=== PATIENT | female | born 1990 | race Caucasian/White ===

== ENCOUNTER 2019-10-21 04:57 | Inpatient (IN) | payer OTHER, SELFPAY ==
[2019-10-21] VITALS (74 sets, daily range): BP systolic 100–149; BP diastolic 54–87; PULSE 73–101; RESP 12–20; TEMP 36.5–36.8; O2SAT 94–100; BMI 37.8
[2019-10-21 06:05] LABS: Basophils Percent Auto 0.2 % (0.2-1.2); Eosinophils Absolute Auto 0.1 K/mm3 (0-0.3); Eosinophils Percent Auto 0.9 % (0-4.4); Hematocrit 36.4 % (37.0-47.0); Hemoglobin 12.2 g/dL (12.0-15.0); Immature Granulocyte Absolute 0.04 K/mm3 (0.00-0.031); Immature Granulocyte Percent A 0.4 % (0-0.5); Lymphocytes Absolute Auto 1.22 K/mm3 (0.9-3.2); Lymphocytes Percent Auto 13.3 % (18.3-44.2); Mean Corpuscular HGB Conc 33.5 g/dl (32-36); Mean Corpuscular Volume 86.7 fl (80-100); Mean Platelet Volume 11.7 fl (7.4-10.4); Monocytes Absolute Auto 0.5 K/mm3 (0.1-0.6); Monocytes Percent Auto 5.1 % (2.6-8.5); Neutrophils Absolute Auto 7.3 K/mm3 (1.3-6.7); Neutrophils Percent Auto 80.1 % (45.5-73.1); Platelet Count Result 209 k/mm3 (150-375); Red Cell Distribution Width 13.7 % (11.5-14.5); White Blood Count 9.2 K/mm3 (4.5-10.0)
[2019-10-21 06:14] LABS: Alanine Aminotransferase 17 U/L (4-35); Albumin Level 3.8 g/dL (3.5-5.1); Alkaline Phosphatase 117 U/L (38-126); Aspartate Amino Transferase 21 U/L (14-36); Bilirubin,Total 0.3 mg/dL (0.2-1.3); Blood Urea Nitrogen 8 mg/dL (7-17); Calcium 9.7 mg/dL (8.4-10.2); Carbon Dioxide 19 mmol/L (22-30); Chloride 106 mmol/L (98-107); Estimated Glomerular Filt Rate > 60; Glucose 98 mg/dL (65-105); Potassium 4.1 mmol/L (3.4-5.0); Sodium 132 mmol/L (137-145); Uric Acid 5.5 mg/dL (2.5-7.5)
--- NOTE | 2019-10-21 06:42 | LDADM ---
This patient, Vandana Call, was admitted to Labor/Delivery/Recovery 102 on 10/21/19 at 04:57. Plans for labor, pain management and were discussed with patient. Patient/family oriented to hospital policies and general routines including ID bracelet, bed and alarms, visiting hours, pain management, procedures, bathroom and other care routines, personal items, smoking policy, room service/diet and guest tray routines, security routines, and visiting hours. Patient/Family are encouraged to report perceived risks to care and to ask questions if they do not understand what they are told or what they should do. See OBIX for further documentation.
[2019-10-21] MEDS: LACTATED RINGERS 1,000 ML 125 ML IV CONT (07:11)
[2019-10-21] MEDS: OXYTOCIN 30 UNITS/NS 500 ML 30 UNITS/500 ML BAG 6 UNITS IV CONT (07:11)
--- NOTE | 2019-10-21 07:13 | PM.IMHP ---
H&P: HPI History of Present Illness Chief complaint: induction Narrative: Vandana Call is a 29 year old female whose last menstrual period was 01/21/2019 EDC is 10/28/2019 presents at 39 weeks gestation for induction of labor. She has had rising blood pressures over the last 3 weeks. Her PIH labs were negative. She is also spilling protein. Review of Systems Review of Systems: All systems reviewed & are unremarkable except as noted in HPI and below PMFSH Family History Family History Other No pertinent family history Social History Social History Smoking packs per day: 0.5 Smoking cigarettes per day: 10.0 Years smoked: 10 Smoking pack-years: 5.00 Smoking status: Light tobacco smoker Tobacco type: cigarettes Substance use: never Gender identity (if verbalized by the patient): Female Spiritual care concerns: No Meds Home Medications and Allergies Home Medications Medication Instructions Recorded Confirmed Type PNV cmb#95-ferrous fumarate-FA 1 tablet PO DAILY 10/11/19 10/11/19 History [] ergocalciferol (vitamin D2) 50,000 unit PO WEEKLY 10/11/19 10/11/19 History [Vitamin D2] Allergies Allergy/AdvReac Type Severity Reaction Status Date / Time No Known Allergies Allergy Verified 10/11/19 13:26 Vital Signs Vital Signs - 24 hr 10/21/19 05:56 10/21/19 06:00 10/21/19 06:15 Pulse Rate 88 82 76 Blood Pressure 127/78 119/80 115/78 10/21/19 07:13 Pulse Rate 77 Blood Pressure 121/87 Exam Const: General: no acute distress Eyes: General: appearance normal, both eyes and all related structures Neck: Neck: supple and no JVD Thyroid: thyroid normal Resp: Effort & Inspection: normal respiratory effort Auscultation: clear to auscultation bilaterally Cardio: Rate: regular rate Rhythm: regular rhythm GI: Inspection: normal to inspection (Gravid soft uterus) : General: Yes other (Cervix is 2 to 3/70 5/-2. AROM clear. FHTs sure reassuring) Skin: General skin exam: no rashes or lesions noted Extrem: General: normal to inspection and no edema Psych: Mental Status: mental status grossly normal Affect: normal affect H&P: Results Labs Labs: Short CBC 10/21/19 Range/Units 05:52 WBC 9.2 (4.5-10.0) K/mm3 Hgb 12.2 (12.0-15.0) g/dL Hct 36.4 L (37.0-47.0) % Plt Count 209 (150-375) k/mm3 BMP 10/21/19 05:52 Sodium 132 L Potassium 4.1 Chloride 106 Carbon Dioxide 19 L BUN 8 Creatinine 0.40 L Glucose 98 Calcium 9.7 Liver Function 10/21/19 Range/Units 05:52 Total Bilirubin 0.3 (0.2-1.3) mg/dL AST 21 (14-36) U/L ALT 17 (4-35) U/L Alkaline Phosphatase 117 (38-126) U/L Albumin 3.8 (3.5-5.1) g/dL Assessment and Plan Additional Plan Impression 39 week with elevated blood pressures Plan: Medical lateral labor. Spontaneous vaginal delivery is expected. She has an epidural candidate. PIH labs were drawn and normal
[2019-10-21 07:43] LABS: Rapid Plasma Reagin Non-Reactive (NonReactive)
--- NOTE | 2019-10-21 08:00 | P.PNOB_ITS ---
OB - PN: Subj Subjective Date/time seen: 10/21/19 08:00 Interval history: episode of bradycardia after prolonged uc pit off/repositioned fhts ok now OB - PN: Obj Data Labs CBC & Chem 7: 10/21/19 05:52 10/21/19 05:52 Labs: Laboratory Results - last 24 hr 10/21/19 10/21/19 10/21/19 05:52 05:52 05:52 WBC 9.2 RBC 4.20 Hgb 12.2 Hct 36.4 L MCV 86.7 MCH 29.0 MCHC 33.5 RDW 13.7 Plt Count 209 MPV 11.7 H Immature Gran % (Auto) 0.4 Neut % (Auto) 80.1 H Lymph % (Auto) 13.3 L [place] % (Auto) 5.1 Eos % (Auto) 0.9 Baso % (Auto) 0.2 Lymph # (Auto) 1.22 [place] # (Auto) 0.5 Eos # (Auto) 0.1 Baso # (Auto) 0.0 Abs Immat Gran (auto) 0.04 H Absolute Neuts (auto) 7.3 H Absolute Nucleated RBC 0.0 Nucleated RBC % 0.0 Sodium 132 L Potassium 4.1 Chloride 106 Carbon Dioxide 19 L BUN 8 Creatinine 0.40 L Estim Creat Clear Calc Not Reportable Estimated GFR > 60 Glucose 98 Uric Acid 5.5 Calcium 9.7 Total Bilirubin 0.3 AST 21 ALT 17 Alkaline Phosphatase 117 Total Protein 7.0 Albumin 3.8 RPR Non-reactive Blood Type Antibody Screen 10/21/19 05:53 WBC RBC Hgb Hct MCV MCH MCHC RDW Plt Count MPV Immature Gran % (Auto) Neut % (Auto) Lymph % (Auto) [place] % (Auto) Eos % (Auto) Baso % (Auto) Lymph # (Auto) [place] # (Auto) Eos # (Auto) Baso # (Auto) Abs Immat Gran (auto) Absolute Neuts (auto) Absolute Nucleated RBC Nucleated RBC % Sodium Potassium Chloride Carbon Dioxide BUN Creatinine Estim Creat Clear Calc Estimated GFR Glucose Uric Acid Calcium Total Bilirubin AST ALT Alkaline Phosphatase Total Protein Albumin RPR Blood Type O Positive Antibody Screen Negative OB - PN A/P Time Spent With Patient Time: Total time spent is greater than 50% in coordination of care (as documented) at patient's floor/unit and/or counseling patient:
--- NOTE | 2019-10-21 08:44 | PM.OBPNVD ---
OB - PN: Subj Subjective Date/time seen: 10/21/19 08:44 Interval history: another few episodes of decels fhts returned offered section risks and benefits given OB - PN: Obj Data Labs CBC & Chem 7: 10/21/19 05:52 10/21/19 05:52 Labs: Laboratory Results - last 24 hr 10/21/19 10/21/19 10/21/19 05:52 05:52 05:52 WBC 9.2 RBC 4.20 Hgb 12.2 Hct 36.4 L MCV 86.7 MCH 29.0 MCHC 33.5 RDW 13.7 Plt Count 209 MPV 11.7 H Immature Gran % (Auto) 0.4 Neut % (Auto) 80.1 H Lymph % (Auto) 13.3 L [place] % (Auto) 5.1 Eos % (Auto) 0.9 Baso % (Auto) 0.2 Lymph # (Auto) 1.22 [place] # (Auto) 0.5 Eos # (Auto) 0.1 Baso # (Auto) 0.0 Abs Immat Gran (auto) 0.04 H Absolute Neuts (auto) 7.3 H Absolute Nucleated RBC 0.0 Nucleated RBC % 0.0 Sodium 132 L Potassium 4.1 Chloride 106 Carbon Dioxide 19 L BUN 8 Creatinine 0.40 L Estim Creat Clear Calc Not Reportable Estimated GFR > 60 Glucose 98 Uric Acid 5.5 Calcium 9.7 Total Bilirubin 0.3 AST 21 ALT 17 Alkaline Phosphatase 117 Total Protein 7.0 Albumin 3.8 RPR Non-reactive Blood Type Antibody Screen 10/21/19 05:53 WBC RBC Hgb Hct MCV MCH MCHC RDW Plt Count MPV Immature Gran % (Auto) Neut % (Auto) Lymph % (Auto) [place] % (Auto) Eos % (Auto) Baso % (Auto) Lymph # (Auto) [place] # (Auto) Eos # (Auto) Baso # (Auto) Abs Immat Gran (auto) Absolute Neuts (auto) Absolute Nucleated RBC Nucleated RBC % Sodium Potassium Chloride Carbon Dioxide BUN Creatinine Estim Creat Clear Calc Estimated GFR Glucose Uric Acid Calcium Total Bilirubin AST ALT Alkaline Phosphatase Total Protein Albumin RPR Blood Type O Positive Antibody Screen Negative OB - PN A/P Time Spent With Patient Time: Total time spent is greater than 50% in coordination of care (as documented) at patient's floor/unit and/or counseling patient:
--- NOTE | 2019-10-21 09:28 | P.OP_ITS ---
Procedure Note - Detailed Date of procedure: 10/21/19 Pre-op diagnosis: induction Surgeon: Kimo Buckley MD Postop diagnosis: Term /hypertension / intolerance of labor Procedure: Primary low transverse section EBL: 280cc Findings male Apgars 9 and 9 at 1 and 5 minutes respectively Complications: None anesthesia: General endotracheal Description of procedure: The patient was prepped and draped in the normal sterile fashion placed in the supine position under excellent general trach anesthesia rapid a transverse incision was made progressive layers to fascia. Fascia was upward outward fashion bilaterally. Underlying muscles were sharply dissected. Parietal peritoneum of [place] clamps entered by sharp dissection. This was carried superiorly then inferiorly the dome of the bladder. Bladder blade was placed bladder flap was formed. Bladder blade returned a low transverse incision made the head delivered in the JOSH position. Anterior posterior shoulder delivered spontaneously. Cord clamped x2 and cut and passed off the table given Apgars of 9 [id number]. Cord blood was drawn. Placenta delivered intact manually delivered uterus delivered from the abdomen. After assuring no membranes or debris made in the uterus uterus was closed with avtar nuous running locking 0 Vicryl from lateral edge to lateral edge. This was followed by a 2nd imbricating running locking 0 Vicryl from lateral edge to lateral edge. Hemostasis was assured ovaries and tubes appeared within normal limits. The uterus returned to the abdomen. Hysterotomy incision inspected 1 last time noted be hemostatic. Laps removed and accounted for. The fascia was closed with continuous running 0 Vicryl from lateral edge to midline bilaterally. Irrigation subcutaneous layer. The skin closed with 4 Monocryl and glue. All sponge, needle, instrument counts were correct. There were no immediate complications. Mom and baby doing fine at the time of dictation
--- NOTE | 2019-10-21 09:41 | WPDANESEPPF ---
Anes - Initial Pre Proc Eval Procedure: Operation Date: 10/21/19 08:50 Proposed Procedures p Section - Kimo Buckley MD Date/Time: 10/21/19 09:41 Surgeon: Kimo Buckley MD Pre Op Diagnosis: induction Patient Data Age: 29 Gender: F Height: 5 ft 4 in Weight: 100 kg Last Vital Signs Temp 36.8 C 10/21/19 07:22 Pulse 80 10/21/19 09:40 BP 135/71 10/21/19 09:40 Pulse Ox 100 10/21/19 09:39 Allergies Allergy/AdvReac Type Severity Reaction Status Date / Time No Known Allergies Allergy Verified 10/11/19 13:26 Home Medications Medication Instructions Recorded Confirmed Type PNV cmb#95-ferrous fumarate-FA 1 tablet PO DAILY 10/11/19 10/11/19 History [] ergocalciferol (vitamin D2) 50,000 unit PO WEEKLY 10/11/19 10/11/19 History [Vitamin D2] Laboratory Tests 10/21/19 10/21/19 10/21/19 05:52 05:52 05:52 WBC 9.2 K/mm3 K/mm3 (4.5-10.0) RBC 4.20 M/mm3 M/mm3 (4.2-5.4) Hgb 12.2 g/dL g/dL (12.0-15.0) Hct 36.4 % L % (37.0-47.0) MCV 86.7 fl fl (80-100) MCH 29.0 pg pg (26-34) MCHC 33.5 g/dl g/dl (32-36) RDW 13.7 % % (11.5-14.5) Plt Count 209 k/mm3 k/mm3 (150-375) MPV 11.7 fl H fl (7.4-10.4) Immature Gran % (Auto) 0.4 % % (0-0.5) Neut % (Auto) 80.1 % H % (45.5-73.1) Lymph % (Auto) 13.3 % L % (18.3-44.2) [place] % (Auto) 5.1 % % (2.6-8.5) Eos % (Auto) 0.9 % % (0-4.4) Baso % (Auto) 0.2 % % (0.2-1.2) Lymph # (Auto) 1.22 K/mm3 K/mm3 (0.9-3.2) [place] # (Auto) 0.5 K/mm3 K/mm3 (0.1-0.6) Eos # (Auto) 0.1 K/mm3 K/mm3 (0-0.3) Baso # (Auto) 0.0 K/mm3 K/mm3 (0.0-0.1) Abs Immat Gran (auto) 0.04 K/mm3 H K/mm3 (0.00-0.031) Absolute Neuts (auto) 7.3 K/mm3 H K/mm3 (1.3-6.7) Absolute Nucleated RBC 0.0 K/mm3 K/mm3 (0.0-0.012) Nucleated RBC % 0.0 % % (0.0-0.2) Sodium 132 mmol/L L mmol/L (137-145) Potassium 4.1 mmol/L mmol/L (3.4-5.0) Chloride 106 mmol/L mmol/L (98-107) Carbon Dioxide 19 mmol/L L mmol/L (22-30) BUN 8 mg/dL mg/dL (7-17) Creatinine 0.40 mg/dL L mg/dL (0.7-1.0) Estim Creat Clear Calc Not Reportable Estimated GFR > 60 (59 - ) Glucose 98 mg/dL mg/dL (65-105) Uric Acid 5.5 mg/dL mg/dL (2.5-7.5) Calcium 9.7 mg/dL mg/dL (8.4-10.2) Total Bilirubin 0.3 mg/dL mg/dL (0.2-1.3) AST 21 U/L U/L (14-36) ALT 17 U/L U/L (4-35) Alkaline Phosphatase 117 U/L U/L (38-126) Total Protein 7.0 g/dL g/dL (6.3-8.2) Albumin 3.8 g/dL g/dL (3.5-5.1) RPR Non-reactive (NonReactive) Blood Type Antibody Screen 10/21/19 05:53 WBC RBC Hgb Hct MCV MCH MCHC RDW Plt Count MPV Immature Gran % (Auto) Neut % (Auto) Lymph % (Auto) [place] % (Auto) Eos % (Auto) Baso % (Auto) Lymph # (Auto) [place] # (Auto) Eos # (Auto) Baso # (Auto) Abs Immat Gran (auto) Absolute Neuts (auto) Absolute Nucleated RBC Nucleated RBC % Sodium Potassium Chloride Carbon Dioxide BUN Creatinine Estim Creat Clear Calc Estimated GFR Glucose Uric Acid Calcium Total Bilirubin AST ALT Alkaline Phosphatase Total Protein Albumin RPR Blood Type O Positive Antibody Screen Negative Patient hx anesthesia problems: none Family hx anesthesia problems: none [facility] Past Medical History Medical History (Reviewed 10/21/19 @ 09:41 by Mikal Contreras,
[2019-10-21] MEDS: OXYTOCIN 30 UNITS/NS 500 ML 30 UNITS/500 ML BAG 125 UNITS IV CONT (11:22)
--- NOTE | 2019-10-21 14:00 | PC.NURSE ---
Consult with pt., Reviewed infant feeding cues, frequencies, duration of feedings, feeding elimination flow sheet, and signs of adequate intake. Demonstrated stimulation techniques to wake infant for feeding. Assisted with infant to breast. Reviewed positioning/alignment in cross cradle, holding breast in U hold and guided asymmetrical latch on. Discussed rational for each. Infant was able to latch correctly. nursed eagerly, with steady draws and frequent swallowing noted. Reviewed signs of a correct latch, effective nursing and suck swallow ratio. was able to maintain latch without discomfort to mother. Nipple care reviewed. Suggested to stimulate during feeding to keep infant awake and nursing effectively for increased intake and maintaining deep latch. Demonstrated how to adjust latch more deeply while feeding. Instructed mother to call out for RN assistance if she is unable to latch infant for feeding or she has discomfort with nursing. Instructed feeding should be initiated three hours from start of last feeding or if feeding cues are noted before. Mother voiced understanding of information shared.
--- NOTE | 2019-10-21 15:19 | PC.NURSE ---
Addendum entered by Juliana Horton RN 10/21/19 15:20: Pt. transferred at 1247. Original Note: Patient transferred to post room #290 via stretcher. Support person present. Oriented to unit, room, information board, rooming in, admission packet and security measures. Patient verbalizes understanding.
[2019-10-21] MEDS: IBUPROFEN 600 MG TABLET PO ×2 (16:39→23:47)
[2019-10-21] MEDS: KCL 20 MEQ/D5/0.45% SOD CHL 1,000 ML 125 ML IV CONT (16:40)
[2019-10-22] VITALS: BP 107/56; PULSE 81; RESP 16; TEMP 36.8
[2019-10-22 04:40] VITALS: BP 108/64; PULSE 76; RESP 16; TEMP 36.7
[2019-10-22 05:10] LABS: Basophils Percent Auto 0.2 % (0.2-1.2); Eosinophils Absolute Auto 0.1 K/mm3 (0-0.3); Eosinophils Percent Auto 0.9 % (0-4.4); Hemoglobin 9.7 g/dL (12.0-15.0); Immature Granulocyte Absolute 0.04 K/mm3 (0.00-0.031); Immature Granulocyte Percent A 0.5 % (0-0.5); Lymphocytes Absolute Auto 1.26 K/mm3 (0.9-3.2); Lymphocytes Percent Auto 15.5 % (18.3-44.2); Mean Corpuscular HGB Conc 33.4 g/dl (32-36); Mean Corpuscular Hemoglobin 29.2 pg (26-34); Mean Corpuscular Volume 87.3 fl (80-100); Mean Platelet Volume 11.4 fl (7.4-10.4); Monocytes Absolute Auto 0.4 K/mm3 (0.1-0.6); Monocytes Percent Auto 5.4 % (2.6-8.5); Neutrophils Absolute Auto 6.3 K/mm3 (1.3-6.7); Neutrophils Percent Auto 77.5 % (45.5-73.1); Platelet Count Result 163 k/mm3 (150-375); Red Blood Count 3.32 M/mm3 (4.2-5.4); Red Cell Distribution Width 13.9 % (11.5-14.5); White Blood Count 8.2 K/mm3 (4.5-10.0)
--- NOTE | 2019-10-22 06:52 | PM.OBPNVD ---
OB - PN: Subj Subjective Date/time seen: 10/22/19 06:52 Patient comments: no complaints and pain well controlled baby status: doing well and nursing well OB - PN: Obj Data Labs CBC & Chem 7: 10/22/19 04:39 10/21/19 05:52 Labs: Laboratory Results - last 24 hr 10/21/19 10/21/19 10/22/19 05:52 05:53 04:39 WBC 8.2 RBC 3.32 L Hgb 9.7 L Hct 29.0 L MCV 87.3 MCH 29.2 MCHC 33.4 RDW 13.9 Plt Count 163 MPV 11.4 H Immature Gran % (Auto) 0.5 Neut % (Auto) 77.5 H Lymph % (Auto) 15.5 L [place] % (Auto) 5.4 Eos % (Auto) 0.9 Baso % (Auto) 0.2 Lymph # (Auto) 1.26 [place] # (Auto) 0.4 Eos # (Auto) 0.1 Baso # (Auto) 0.0 Abs Immat Gran (auto) 0.04 H Absolute Neuts (auto) 6.3 Absolute Nucleated RBC 0.0 Nucleated RBC % 0.0 RPR Non-reactive Blood Type O Positive Antibody Screen Negative OB - PN A/P Plan day: 1 Plan: routine care Time Spent With Patient Time: Total time spent is greater than 50% in coordination of care (as documented) at patient's floor/unit and/or counseling patient: Time with patient: less than 15 minutes Review of Systems Review of Systems: All systems reviewed & are unremarkable except as noted in HPI and below Exam Const: General: no acute distress Eyes: General: appearance normal, both eyes and all related structures Neck: Neck: supple and no JVD Thyroid: thyroid normal Resp: Effort & Inspection: normal respiratory effort Auscultation: clear to auscultation bilaterally Cardio: Rate: regular rate Rhythm: regular rhythm GI: Inspection: normal to inspection and incision (cdi) Percussion: Yes normal to percussion Auscultation: normal bowel sounds : General: Yes bladder normal to palpation External Female Exam: normal external appearance Speculum Exam - Vagina: normal vaginal discharge and No vaginal bleeding Speculum Exam - Cervix: nontender Bimanual exam- vagina & uterus: bladder normal to palpation and No Cervical tenderness present OB/external & speculum: No vaginal bleeding Skin: General skin exam: no rashes or lesions noted Extrem: General: normal to inspection and no edema Psych: Mental Status: mental status grossly normal Affect: normal affect
[2019-10-22 08:02] VITALS: BP 133/84; PULSE 76; RESP 20; TEMP 36.7; O2SAT 97
[2019-10-22] MEDS: POLYSACCHARIDE IRON COMPLEX 150 MG CAPSULE PO ×2 (09:38→17:14)
[2019-10-22] MEDS: DOCUSATE SODIUM 100 MG CAPSULE PO ×2 (09:39→17:14)
[2019-10-22] MEDS: IBUPROFEN 600 MG TABLET PO ×2 (09:40→17:11)
[2019-10-22] MEDS: MULTIVIT/MIN/PREN/FOL AC/IRON TABLET 1 TAB PO (09:40)
[2019-10-22] MEDS: SIMETHICONE 80 MG TAB.CHEW PO ×2 (09:47→17:16)
--- NOTE | 2019-10-22 10:20 | PC.NURSE ---
Mother called out for assist with feeding. Mother states she began using the nipple shield during the night. Infant had difficulties latching and maintaining latch. Discussed nipple shield precautions and possible complications. Instructions given on application and cleaning of shield. Patient able to return demonstration on proper application of shield. Discussed the need to initiate pumping if infant continues to nurse with the shield. Patient verbalizes understanding. Reviewed positioning/alignment in football, holding breast in C hold and guided asymmetrical latch on. Discussed rational for each. With shield in place, Infant was able to latch correctly. nursed eagerly, with steady draws and occasional swallowing noted. Reviewed signs of a correct latch, effective nursing and suck swallow ratio. was able to maintain latch without discomfort to mother. Nipple care reviewed. Reviewed infant feeding cues, frequencies, duration of feedings, feeding elimination flow sheet, and signs of adequate intake. Mother states she is concerned infant is not getting enough with . Reviewed adequate signs of intake and is WNL at this time. Advised she could supplement small amount of formula 15-20mls after and discontinue once her milk is in and she is comfortable, she could discontinue supplement. Mother states she will initiate supplementation.
--- NOTE | 2019-10-22 13:50 | PC.NURSE ---
Breast pump provided due to nipple shield use. Instructions given on breast pump care and usage, pumping schedule, nipple care, and collection and storage of breast milk. Encouraged [id number], breast massage and manual expression to stimulate supply. . Assessed patient for correct flange size, placement and draw. Patient verbalizes and demonstrates understanding of instructions.
--- NOTE | 2019-10-22 15:30 | PC.NURSE ---
Pt introductions made and plan of care discussed per post op c section, pain management, breast/bottle feeding/pumping, daily care activities. PT verbalized understanding of such care.
[2019-10-22 20:25] VITALS: BP 114/68; PULSE 84; RESP 16; TEMP 36.6
[2019-10-23 07:45] VITALS: BP 121/71; PULSE 74; RESP 16; TEMP 36.3; O2SAT 99
[2019-10-23] MEDS: MULTIVIT/MIN/PREN/FOL AC/IRON TABLET 1 TAB PO (09:58)
[2019-10-23] MEDS: POLYSACCHARIDE IRON COMPLEX 150 MG CAPSULE PO (09:58)
[2019-10-23] MEDS: DOCUSATE SODIUM 100 MG CAPSULE PO (09:58)
[2019-10-23] MEDS: IBUPROFEN 600 MG TABLET PO (09:59)
[2019-10-23] MEDS: SIMETHICONE 80 MG TAB.CHEW PO (10:00)
--- NOTE | 2019-10-23 11:22 | PM.OBPNVD ---
OB - PN: Subj Subjective Date/time seen: 10/23/19 11:22 Narrative: Pain OK. Tolerating diet. Would like to go home. OB - PN: Obj Data Labs CBC & Chem 7: 10/22/19 04:39 10/21/19 05:52 OB - PN A/P Plan Comments: A: POD#2, doing well. P: Home to f/u 4 weeks. Exam Psych: Other: AVSS ABD soft, nontender, fundus firm. Incision c/d/i. EXT nontender
--- NOTE | 2019-10-23 11:22 | PM.OBDSVD ---
DS: Diagnosis Discharge Diagnosis (1) delivery delivered: Code(s): O82 - Encounter for delivery without indication Status: Acute OB - DS: Summary OB Procedures : None OB Procedures Intrapartum: OB Procedures: : None Peripartum Data Procedures: Procedures Operation Date: 10/21/19 08:50 Actual Procedures Side Surgeon p Section Kimo Buckley MD Time Spent with Patient Time attestation: Total time spent providing and/or coordinating discharge services: Discharge Plan Discharge Attending physician on discharge: Kimo Buckley Discharging Clinician: Lamont Archer Patient Disposition: Home, Self-Care Activity: may shower, may drive after 2 weeks and pelvic rest Diet: regular Wound Care Instructions: incision open to air Discharge Instructions: Call or return if temperature above 100.4? F, increased abdominal pain, increased vaginal bleeding or any new problems. Stand Alone Forms: General Discharge Information Follow-up/Referrals: Kimo Buckley MD [Physician] - (4 weeks) Discharge Medications: New ibuprofen 600 mg tablet 600 mg PO Q6H PRN (Reason: cramps) Qty: 30 RF: 0 hydrocodone-acetaminophen [[place]] 5-325 mg tablet 1 - 2 tablet PO Q6H PRN (Reason: pain) Qty: 30 RF: 0 ferrous sulfate 325 mg (65 mg iron) tablet,delayed release (DR/EC) 325 mg PO DAILY Qty: 30 RF: 0 No Action PNV cmb#95-ferrous fumarate-FA [] 28 mg iron- 800 mcg Tablet 1 tablet PO DAILY RF: 0 ergocalciferol (vitamin D2) [Vitamin D2] 1,250 mcg (50,000 unit) Capsule 50,000 unit PO WEEKLY RF: 0 Date of admission: 10/21/19 04:57 Primary Care Provider: UNKNOWN,DOCTOR Admitting Provider: Kimo Buckley Attending physician on admission: Kimo Buckley
--- NOTE | 2019-10-23 13:15 | PC.NURSE ---
1000-Patient viewed the discharge video Mother & Baby Care, The First Two Weeks . Patient was given the opportunity and encouraged to ask questions. Patient verbalized understanding of information shared and has been given the mother/baby guide for home reference.
[2019-10-25 09:02] VITALS: BP 131/84; PULSE 80; RESP 20; TEMP 37; O2SAT 99
== END 2019-10-23 13:56 | disposition home or self-care (01) | DRG 788 ==
LOC: ANHLDR 05:32 → ANHOB2 13:36 → ANHLDR 10-26 10:32 → ANHOB2 10-26 10:32
PROVIDERS: Admitting Provider Obstetrics & Gynecology; Visit Provider Obstetrics & Gynecology
PROC: 10D00Z1 Extraction of Products of Conception, Low, Open Approach (ICD-10-PCS; CPT 59514; principal; 2019-10-21 08:50)
DX: O24.429 Gestational diabetes mellitus in childbirth, unspecified control (principal); O99.214 Obesity complicating childbirth; E66.01 Morbid (severe) obesity due to excess calories; O76 Abnormality in fetal heart rate and rhythm complicating labor and delivery; Z23 Encounter for immunization; F17.210 Nicotine dependence, cigarettes, uncomplicated; Z3A.39 39 weeks gestation of pregnancy; Z37.0 Single live birth; O99.334 Smoking (tobacco) complicating childbirth
CPT/HCPCS: 36415; 80053; 84550; 85025; 86592; 86850; 86900; 86901; A9270; J2250; J2274; J2590; J3010; J3105; J3480; J7030; J7120

== ENCOUNTER → 2020-09-18 11:06 | Outpatient (CLI) | payer OTHER, SELFPAY ==
--- NOTE | ~2020-09-18 | US_ITS ---
EXAMINATION: US OB transvaginal DATE: 09/18/2020 11:35 INDICATION: Uncertain dates. TECHNIQUE: Real-time transvaginal pelvic ultrasound was performed. COMPARISON: None. FINDINGS: The uterus measures 10.2 x 5.6 x 6.0 cm. There is an intrauterine gestational sac. A yolk sac is iden tified. The crown rump length measures 9 mm, which correlates with an estimated gestational ag e of 6 weeks and 6 day(s) (+/-) 4 day(s). heart motion is identified measuring 149 beats per mi nute (bpm) by M-mode Doppler. There is a small subchorionic hematoma measuring 1.0 x 0.3 x 0.7 cm. Th e right ovary measures 2.0 x 2.8 x 2.1 cm. The left ovary measures 1.7 x 1.8 x 2.2 cm. There is no fr ee fluid in the pelvis. IMPRESSION: 1. Single living intrauterine gestation with estimated date of delivery of 05/08/2021. 2. Small subchorionic hematoma. Reviewed, dictated and finalized at location A. OR PETROLEUM OPERATOR IMPRESSION: 1. Single living intrauterine gestation with estimated date of delivery of 06/2021. 2. Small subchorionic hematoma.
== END ==
PROVIDERS: Visit Provider Obstetrics & Gynecology
DX: O46.90 Antepartum hemorrhage, unspecified, unspecified trimester (principal); Z3A.00 Weeks of gestation of pregnancy not specified
CPT/HCPCS: 76817

== ENCOUNTER 2021-04-21 13:45 | Observation (INO) | payer OTHER, SELFPAY ==
[2021-04-21 14:10] VITALS: BP 135/74; PULSE 76
[2021-04-21 14:31] VITALS: BP 129/80; PULSE 74
[2021-04-21] MEDS: LACTATED RINGERS 1,000 ML 999 ML IV CONT (14:50)
[2021-04-21] MEDS: ONDANSETRON INJ 4 MG/2 ML VIAL IV PUSH (14:52)
[2021-04-21] MEDS: FAMOTIDINE 20 MG/2 ML VIAL IV PUSH (14:52)
[2021-04-21 15:14] LABS: Basophils Percent Auto 0.2 % (0.2-1.2); Eosinophils Percent Auto 0.3 % (0-4.4); Hematocrit 34.7 % (37.0-47.0); Hemoglobin 11.7 g/dL (12.0-15.0); Immature Granulocyte Absolute 0.04 K/mm3 (0.00-0.031); Immature Granulocyte Percent A 0.4 % (0-0.5); Lymphocytes Absolute Auto 0.64 K/mm3 (0.9-3.2); Lymphocytes Percent Auto 6.5 % (18.3-44.2); Mean Corpuscular HGB Conc 33.7 g/dl (32-36); Mean Corpuscular Hemoglobin 30.2 pg (26-34); Mean Corpuscular Volume 89.7 fl (80-100); Mean Platelet Volume 11.2 fl (7.4-10.4); Monocytes Absolute Auto 0.4 K/mm3 (0.1-0.6); Monocytes Percent Auto 3.7 % (2.6-8.5); Neutrophils Absolute Auto 8.7 K/mm3 (1.3-6.7); Neutrophils Percent Auto 88.9 % (45.5-73.1); Platelet Count Result 178 k/mm3 (150-375); Red Blood Count 3.87 M/mm3 (4.2-5.4); Red Cell Distribution Width 13.9 % (11.5-14.5); White Blood Count 9.8 K/mm3 (4.5-10.0)
[2021-04-21 15:24] LABS: Alanine Aminotransferase 20 U/L (4-35); Alkaline Phosphatase 121 U/L (38-126); Anion Gap 10 mmol/L (8-16); Aspartate Amino Transferase 23 U/L (14-36); Bilirubin,Total 0.5 mg/dL (0.2-1.3); Blood Urea Nitrogen 6 mg/dL (7-17); Carbon Dioxide 19 mmol/L (22-30); Chloride 108 mmol/L (98-107); Estimated Glomerular Filt Rate > 60; Glucose 114 mg/dL (65-110); Potassium 4.1 mmol/L (3.4-5.0); Sodium 137 mmol/L (137-145)
--- NOTE | 2021-04-22 07:38 | PM.OBTRLD ---
OB - Triage/Final Diagnosis Visit Information Date of evaluation: 04/21/21 Reason for evaluation: threatened labor Comments/Additional reasons for admission: I have assessed the risk for this patient, Vandana Call, and determined that she would benefit from observation care. Evaluation Laboratory results: Laboratory Tests 04/21/21 04/21/21 14:58 14:58 WBC 9.8 RBC 3.87 L Hgb 11.7 L Hct 34.7 L MCV 89.7 MCH 30.2 MCHC 33.7 RDW 13.9 Plt Count 178 MPV 11.2 H Immature Gran % (Auto) 0.4 Neut % (Auto) 88.9 H Lymph % (Auto) 6.5 L [place] % (Auto) 3.7 Eos % (Auto) 0.3 Baso % (Auto) 0.2 Lymph # (Auto) 0.64 L [place] # (Auto) 0.4 Eos # (Auto) 0.0 Baso # (Auto) 0.0 Abs Immat Gran (auto) 0.04 H Absolute Neuts (auto) 8.7 H Absolute Nucleated RBC 0.0 Nucleated RBC % 0.0 Sodium 137 Potassium 4.1 Chloride 108 H Carbon Dioxide 19 L Anion Gap 10 BUN 6 L Creatinine 0.40 L Estim Creat Clear Calc Not Reportable Estimated GFR > 60 Glucose 114 H Calcium 9.0 Total Bilirubin 0.5 AST 23 ALT 20 Alkaline Phosphatase 121 Total Protein 7.0 Albumin 4.0 Vital signs: Vital Signs - 24 hr 04/21/21 14:10 04/21/21 14:31 Pulse Rate 76 74 Blood Pressure 135/74 129/80 Comments: Pt symptoms improved with IVF hydration, zofran and pepcid
== END 2021-04-21 16:33 | disposition home or self-care (01) ==
PROVIDERS: Admitting Provider Student in an Organized Health Care Education/Training Program; Visit Provider Student in an Organized Health Care Education/Training Program
DX: O47.1 False labor at or after 37 completed weeks of gestation (principal); Z3A.38 38 weeks gestation of pregnancy
CPT/HCPCS: 36415; 80053; 85025; 96374; 96375; G0378; G0379; J2405; J7120

== ENCOUNTER 2021-04-28 11:46 | Outpatient (CLI) | payer OTHER, SELFPAY ==
[2021-04-28 12:41] LABS: Hematocrit 32.9 % (37.0-47.0); Hemoglobin 11.1 g/dL (12.0-15.0); Mean Corpuscular HGB Conc 33.7 g/dl (32-36); Mean Corpuscular Hemoglobin 29.5 pg (26-34); Mean Corpuscular Volume 87.5 fl (80-100); Mean Platelet Volume 11.4 fl (7.4-10.4); Platelet Count Result 175 k/mm3 (150-375); Red Blood Count 3.76 M/mm3 (4.2-5.4); Red Cell Distribution Width 14.1 % (11.5-14.5); White Blood Count 6.9 K/mm3 (4.5-10.0)
[2021-04-30 10:41] LABS: Rapid Plasma Reagin Non-Reactive (NonReactive)
== END 2021-04-28 11:47 | disposition home or self-care (01) ==
PROVIDERS: Visit Provider Obstetrics & Gynecology
DX: Z34.93 Encounter for supervision of normal pregnancy, unspecified, third trimester (principal); Z3A.00 Weeks of gestation of pregnancy not specified
CPT/HCPCS: 36415; 85027; 86592; 86850; 86900; 86901

== ENCOUNTER 2021-04-30 05:30 | Inpatient (IN) | payer OTHER, SELFPAY ==
[2021-04-30] VITALS (56 sets, daily range): BP systolic 102–135; BP diastolic 12–107; PULSE 59–131; RESP 12–20; TEMP 36.1–37.3; O2SAT 98–100; BMI 37.6
[2021-04-30] MEDS: LACTATED RINGERS 1,000 ML 125 ML IV CONT ×2 (06:50→08:14)
--- NOTE | 2021-04-30 07:06 | LDADM ---
This patient, Vandana Call, was admitted to Labor/Delivery/Recovery 120 on 04/30/21 at 05:30. Plans for surbery/ and pain management were discussed with patient. Patient/family oriented to hospital policies and general routines including ID bracelet, bed and alarms, visiting hours, pain management, procedures, bathroom and other care routines, personal items, smoking policy, room service/diet and guest tray routines, security routines, and visiting hours. Patient/Family are encouraged to report perceived risks to care and to ask questions if they do not understand what they are told or what they should do. See OBIX for further documentation.
--- NOTE | 2021-04-30 07:45 | PM.IMHP ---
H&P: HPI History of Present Illness Date/Time: 04/30/21 07:45 31-year-old removed 2 para 1 whose last menstrual period was 07/23/2020, EDC is 05/05/2021, confirmed by 10 week ultrasound presents at term for repeat section. She has good dates and declined attempt at vaginal after . She is negative for group B strep Chief Complaint: term for repeat section Review of Systems Review of Systems: All systems reviewed & are unremarkable except as noted in HPI and below PMFSH Past Medical History Medical History Hypertension Family History Family History Mother Diabetes mellitus Father Hypertension Mother Hypertension Other No pertinent family history Social History Social History Smoking packs per day: 0.5 Smoking cigarettes per day: 10.0 Years smoked: 12 Smoking pack-years: 6.00 Smoking status: Current every day smoker Tobacco type: cigarettes Substance use: never Gender identity (if verbalized by the patient): Female Spiritual care concerns: No Meds Home Medications and Allergies Home Medications Medication Instructions Recorded Confirmed Type PNV cmb#95-ferrous fumarate-FA 1 tablet PO DAILY 10/11/19 04/30/21 History [] Allergies Allergy/AdvReac Type Severity Reaction Status Date / Time No Known Allergies Allergy Verified 10/11/19 13:26 Vital Signs Vital Signs - 24 hr 04/30/21 05:47 04/30/21 06:01 04/30/21 06:16 Temperature Pulse Rate 90 85 81 Blood Pressure 120/85 127/86 124/75 04/30/21 06:31 04/30/21 06:43 Temperature 98.0 F Pulse Rate 80 Blood Pressure 123/81 Exam Const: General: no acute distress Eyes: General: appearance normal, both eyes and all related structures Neck: Neck: supple and no JVD Thyroid: thyroid normal Resp: Effort & Inspection: normal respiratory effort Auscultation: clear to auscultation bilaterally Cardio: Rate: regular rate Rhythm: regular rhythm GI: Inspection: non-distended GI Palp: Yes Soft to palpation, No Tenderness to palpation present (GI) and No Guarding due to palpation present (GI) Auscultation: normal bowel sounds : External Female Exam: normal external appearance Speculum Exam - Vagina: normal appearance of the vagina Speculum Exam - Cervix: normal appearance of the cervix Bimanual exam- vagina & uterus: enlarged Skin: General skin exam: no rashes or lesions noted Extrem: General: normal to inspection and no edema Psych: Mental Status: mental status grossly normal Affect: normal affect Assessment and Plan Additional Plan impression: Term with previous section Plan: Repeat low-transverse section
--- NOTE | 2021-04-30 07:49 | P.PNAN_ITS ---
Anes - Initial Pre Proc Eval Procedure: Operation Date: 04/30/21 07:30 Proposed Procedures p Repeat Section - Kimo Buckley MD Date/Time: 04/30/21 07:49 Surgeon: Kimo Buckley MD Pre Op Diagnosis: Patient Data Age: 31 Gender: F Height: 1.63 m Weight: 99.5 kg Last Vital Signs Temp 36.7 C 04/30/21 06:43 Pulse 80 04/30/21 06:31 BP 123/81 04/30/21 06:31 Allergies Allergy/AdvReac Type Severity Reaction Status Date / Time No Known Allergies Allergy Verified 10/11/19 13:26 Home Medications Medication Instructions Recorded Confirmed Type PNV cmb#95-ferrous fumarate-FA 1 tablet PO DAILY 10/11/19 04/30/21 History [] hydrocodone-acetaminophen 1 tablet PO Q4H PRN #30 tablet 04/30/21 Rx Patient hx anesthesia problems: none Family hx anesthesia problems: none Results Review: All pre-operative results and documents have been reviewed as part of the pre-operative evaluation. [facility] Past Medical History Medical History Hypertension Family History Family History Mother Diabetes mellitus Father Hypertension Mother Hypertension Other No pertinent family history Social History Social History Smoking packs per day: 0.5 Smoking cigarettes per day: 10.0 Years smoked: 12 Smoking pack-years: 6.00 Smoking status: Current every day smoker Tobacco type: cigarettes Substance use: never Gender identity (if verbalized by the patient): Female Spiritual care concerns: No Anes - Eval Final PreProcedure Day of Procedure 04/30/21 07:49 Patient weight: obese Heart: regular rate and rhythm Lungs: clear to auscultation Airway: Mallampati scale class II Neurological: alert and oriented ASA classification: II Emergent: no Anesthetic plan: proceed Anesthesia type and monitoring: regional spinal and standard monitoring Results Review: All pre-operative results and documents have been reviewed as part of the pre-operative evaluation. Informed Consent: The patient's anesthetic plan and its attendant risks and benefits were discussed with the patient/family/POA. Questions were solicited and answers provided to the satisfaction of the patient/family/POA.
[2021-04-30] MEDS: ceFAZolin 2 GM/D5W 50 ML 2 GM/50 ML BAG IVPB (08:23)
--- NOTE | 2021-04-30 08:24 | WPDHPUPDATE1 ---
History and Physical Update Update Date/Time: 04/30/21 08:24 History and Physical has been reviewed, including an updated exam of the patient. There are NO changes in the patient's condition. Risks, benefits, and alternatives have been discussed and questions answered. Patient agrees to proceed with procedure.
[2021-04-30] MEDS: KETOROLAC 30 MG/ML VIAL (*BKC) IV PUSH (08:55)
--- NOTE | 2021-04-30 09:08 | W.PM.PROC2 ---
Procedure Note - Detailed Date of Procedure 04/30/21 Pre-op Diagnosis Post-op Diagnosis same Procedure Performed Repeat low-transverse section Surgeon Kimo Buckley MD Anesthesia spinal Indications This is a 31-year-old 2 para 1 at term with a previous section who declined Findings Male infant 6lb 14oz with Apgars of 9 and 9 at 1 and 5minutes respectively. Small amount of and interior adhesions. Normal-appearing ovaries and tubes. Description of Procedure The patient is prepped draped in normal sterile fashion placed in spine position. Under excellent spinal anesthetic the abdomen was entered in a Pfannenstiel fashion progressive layers to the fascia. Fascia was incised in upward outward fashion bladder underlying muscles sharply dissected and the parietal peritoneum elevated by Flori clamps. Visit carried superiorly and inferiorly dome of the bladder. Bladder blade was placed. Bladder flap was formed. The bladder blade returned. A low-transverse incision made the head delivered in the YARI position. Anterior posterior shoulder delivered spontaneously. Cord clamped x2 and cut and infant passed off the table with an excellent cry. Placenta delivered intact manually. Uterus delivered from the abdomen and wrapped in a moist towel. After assuring no membranes or debris remained in the uterus, the uterus was closed continuous running 0 Vicryl from lateral edge to lateral edge. This was followed by 2nd imbricating running locking 0 Vicryl from lateral edge to lateral edge. Hemostasis was assured in the ovaries and tubes checked. The uterus returned to the abdomen. The laps were removed and accounted for. The hysterotomy incision was noted be hemostatic. The fascia closed with continuous running 0 Vicryl from lateral edge to midline bilaterally. The skin closed with 4-0 Monocryl and glue. QBL was 285. All sponge, needle, instrument counts were correct. There were no immediate complications Estimated Blood Loss 285 Drains No Packing No Pathology none sent Complications No immediate complications Condition stable Disposition floor
[2021-04-30] MEDS: diphenhydrAMINE HCl INJ 50 MG/ML VIAL 25 MG IV PUSH (10:07)
--- NOTE | 2021-04-30 12:45 | PC.NURSE ---
Consulted with patient, reviewed infant feeding cues, frequencies, duration of feedings, feeding elimination flow sheet, and signs of adequate intake. Demonstrated stimulation techniques to wake infant for feeding. Assisted with infant to breast. Reviewed positioning/alignment, holding breast and asymmetrical latch on. Infant was able to latch correctly. Infant would latch for 4-5 bursts of sucking and then come off breast. Infant would repeatedly attempt to latch onto breast then suck a few times and come off. Reviewed signs of a correct latch, effective nursing and suck swallow ratio. was able to latch without discomfort to mother. Nipple care reviewed. Instructed mother to call out for RN assistance if she is unable to latch for feeding or she has discomfort with nursing. Instructed feeding should be initiated three hours from start of last feeding or if feeding cues are noted before. Mother voiced understanding of information shared. Nipple shield provided to mother due to infant becoming very frustrated and coming off and on the breast. Instructions given on application and cleaning of shield. Discussed nipple shield precautions and possible complications. Patient able to return demonstration on proper application of shield. Discussed the need to initiate pumping if continues to nurse with the shield. Patient verbalizes understanding.
--- NOTE | 2021-04-30 17:41 | OBPPTRN ---
1150-Patient transferred to post room #282 via stretcher. Support person present. Oriented to unit, room, information board, rooming in, admission packet and security measures. Patient verbalizes understanding.
[2021-04-30] MEDS: DEXTROSE 5%/0.45% SOD CHL 1,000 ML 125 ML IV CONT (20:44)
[2021-05-01] VITALS: BP 102/54; PULSE 72; RESP 18; TEMP 36.3; O2SAT 98
[2021-05-01] MEDS: IBUPROFEN 600 MG TABLET PO ×3 (03:52→23:53)
[2021-05-01 04:20] VITALS: BP 129/61; PULSE 79; RESP 18; TEMP 35.9; O2SAT 99
--- NOTE | 2021-05-01 04:32 | PM.OBPNVD ---
OB - PN: Subj Subjective Date/time seen: 05/01/21 04:32 Patient comments: no complaints and pain well controlled baby status: doing well and nursing well OB - PN A/P Plan day: 1 Plan: routine care Time Spent With Patient Time: Total time spent is greater than 50% in coordination of care (as documented) at patient's floor/unit and/or counseling patient: Time with patient: less than 15 minutes Review of Systems Review of Systems: All systems reviewed & are unremarkable except as noted in HPI and below Exam Const: General: no acute distress Eyes: General: appearance normal, both eyes and all related structures Neck: Neck: supple and no JVD Thyroid: thyroid normal Resp: Effort & Inspection: normal respiratory effort Auscultation: clear to auscultation bilaterally Cardio: Rate: regular rate Rhythm: regular rhythm GI: Inspection: non-distended GI Palp: Yes Soft to palpation, No Tenderness to palpation present (GI) and No Guarding due to palpation present (GI) Auscultation: normal bowel sounds : General: Yes bladder normal to palpation External Female Exam: normal external appearance Speculum Exam - Vagina: normal vaginal discharge and No vaginal bleeding Speculum Exam - Cervix: nontender Bimanual exam- vagina & uterus: bladder normal to palpation and No Cervical tenderness present OB/external & speculum: No vaginal bleeding Skin: General skin exam: no rashes or lesions noted Extrem: General: normal to inspection and no edema Psych: Mental Status: mental status grossly normal Affect: normal affect
[2021-05-01 05:12] LABS: Basophils Percent Auto 0.1 % (0.2-1.2); Eosinophils Absolute Auto 0.1 K/mm3 (0-0.3); Eosinophils Percent Auto 0.8 % (0-4.4); Hematocrit 29.7 % (37.0-47.0); Hemoglobin 9.8 g/dL (12.0-15.0); Immature Granulocyte Absolute 0.03 K/mm3 (0.00-0.031); Immature Granulocyte Percent A 0.4 % (0-0.5); Lymphocytes Absolute Auto 0.81 K/mm3 (0.9-3.2); Lymphocytes Percent Auto 11.3 % (18.3-44.2); Mean Corpuscular Hemoglobin 29.9 pg (26-34); Mean Corpuscular Volume 90.5 fl (80-100); Mean Platelet Volume 11.6 fl (7.4-10.4); Monocytes Absolute Auto 0.4 K/mm3 (0.1-0.6); Monocytes Percent Auto 5.9 % (2.6-8.5); Neutrophils Absolute Auto 5.8 K/mm3 (1.3-6.7); Neutrophils Percent Auto 81.5 % (45.5-73.1); Platelet Count Result 137 k/mm3 (150-375); Red Blood Count 3.28 M/mm3 (4.2-5.4); Red Cell Distribution Width 14.2 % (11.5-14.5); White Blood Count 7.2 K/mm3 (4.5-10.0)
[2021-05-01 08:20] VITALS: BP 100/64; PULSE 74; RESP 18; TEMP 36.5; O2SAT 100
[2021-05-01] MEDS: HYDROcodone/acetaminophen (*CRX) 5-325 MG TABLET 1 TAB PO ×4 (08:46→23:53)
[2021-05-01] MEDS: MULTIVIT/MIN/PREN/FOL AC/IRON TABLET 1 TAB PO (08:46)
[2021-05-01] MEDS: DOCUSATE SODIUM 100 MG CAPSULE PO ×2 (08:46→16:28)
[2021-05-01] MEDS: POLYSACCHARIDE IRON COMPLEX 150 MG CAPSULE PO ×2 (08:46→16:28)
--- NOTE | 2021-05-01 10:32 | WPDANLDPN2 ---
Anes-Prog Note L&D Date/Time: 05/01/21 10:32 Comfortable throughout: labor and delivery Neuraxial method: epidural Epidural/Spinal procedure site: clean & non-tender Neuro status: Neuro function grossly intact. Cardiovascular status: normal Respiratory status: normal Airway patency: baseline Mental status: baseline Post-Op hydration status: normal Vital Signs: Last Vital Signs Temp 36.5 C 05/01/21 08:20 Pulse 74 05/01/21 08:20 Resp 18 05/01/21 08:20 BP 100/64 05/01/21 08:20 Pulse Ox 100 05/01/21 08:20 Pain score (VAS): 3 I/O: Intake & Output 04/30/21 05/01/21 05/01/21 23:59 07:59 15:59 Intake Total 720 800 Output Total 400 2050 Balance 320 -1250 Post-procedural complaints: none Patient feedback: Patient satisfied with anesthetic care.
--- NOTE | 2021-05-01 10:32 | WPDANLDNPN2 ---
Anes-Prog Note L&D-Neuraxial Date/Time: 05/01/21 10:32 Neuraxial medications: intrathecal PF morphine Opiod-related complaints: none Patient feedback: Patient satisfied with post-operative pain management.
--- NOTE | 2021-05-01 14:33 | PC.NURSE ---
Assisted patient with attempt to get to breast. sleepy. would latch and suck once or twice. Stimulated infant to wake, used wet cloth and skin to skin with no progress. Mom going to place skin to skin an will reattempt at 1500 or when starts showing hunger cues.
--- NOTE | 2021-05-01 15:30 | PC.NURSE ---
Assisted with infant to breast. Infant sleepy at beginning of feeding. Infant on breast for a few sucks then off breast repeatedly. then settled into feeding and stayed latch for longer period of time. able to latch correctly. nursed eagerly, with steady draws and frequent swallowing noted once stayed on breast. Reviewed signs of a correct latch, effective nursing and suck swallow ratio. Infant was able to maintain latch without discomfort to mother. Mom interested in pumping to increase supply. Breast pump provided due to maternal choice. Instructions given on breast pump care and usage. Mom will call out when she is ready to start pumping.
[2021-05-01 20:00] VITALS: BP 123/69; PULSE 78; RESP 18; TEMP 36.1; O2SAT 100
--- NOTE | 2021-05-02 07:43 | PM.DS ---
DS: Admitting Diagnosis Discharge Date 05/02/2021 Admitting Diagnosis term /previous section DS: Summary Hospital Course Hospital Course: the patient was admitted for repeat section. She remained afebrile. She was up, voiding without difficulty, ambulating, generally without complaints Time Spent with Patient Time attestation: Total time spent providing and/or coordinating discharge services: Exam Const: General: no acute distress Eyes: General: appearance normal, both eyes and all related structures Neck: Neck: supple and no JVD Thyroid: thyroid normal Resp: Effort & Inspection: normal respiratory effort Auscultation: clear to auscultation bilaterally Cardio: Rate: regular rate Rhythm: regular rhythm GI: Inspection: non-distended GI Palp: Yes Soft to palpation, No Tenderness to palpation present (GI) and No Guarding due to palpation present (GI) Auscultation: normal bowel sounds : General: Yes bladder normal to palpation External Female Exam: normal external appearance Speculum Exam - Vagina: normal vaginal discharge and No vaginal bleeding Speculum Exam - Cervix: nontender Bimanual exam- vagina & uterus: bladder normal to palpation and No Cervical tenderness present OB/external & speculum: No vaginal bleeding Skin: General skin exam: no rashes or lesions noted Extrem: General: normal to inspection and no edema Psych: Mental Status: mental status grossly normal Affect: normal affect Discharge Plan Discharge Attending physician on discharge: Kimo Buckley Discharging Clinician: Kimo Buckley Patient Disposition: Home, Self-Care Activity: may shower, no straining, may drive after 2 weeks and pelvic rest Diet: heart healthy Wound Care Instructions: follow printed instructions Patient Instructions: Antibiotic Form, How to Stop Smoking (GEN), Secondhand Smoke Exposure in Children (GEN) Stand Alone Forms: General Discharge Information Follow-up/Referrals: Kimo Buckley MD [Physician] - Discharge Medications: New hydrocodone-acetaminophen 5-325 mg tablet 1 tablet PO Q4H PRN (Reason: pain) Qty: 30 RF: 0 Continued PNV cmb#95-ferrous fumarate-FA [] 28 mg iron- 800 mcg Tablet 1 tablet PO DAILY RF: 0 Date of admission: 04/30/21 05:30 Primary Care Provider: PHYSICIAN,LOADING INSPECTOR Admitting Provider: Kimo Buckley Attending physician on admission: Kimo Buckley Condition: Stable
--- NOTE | 2021-05-02 07:44 | PM.OBPNVD ---
OB - PN: Subj Subjective Date/time seen: 05/02/21 07:44 Patient comments: no complaints and pain well controlled baby status: doing well and nursing well OB - PN: Obj Data Labs CBC & Chem 7: 05/01/21 03:54 OB - PN A/P Plan day: 2 Plan: routine care, discharge home and follow up 6 weeks ( 4 weeks) Time Spent With Patient Time: Total time spent is greater than 50% in coordination of care (as documented) at patient's floor/unit and/or counseling patient: Time with patient: less than 15 minutes Review of Systems Review of Systems: All systems reviewed & are unremarkable except as noted in HPI and below Exam Const: General: no acute distress Eyes: General: appearance normal, both eyes and all related structures Neck: Neck: supple and no JVD Thyroid: thyroid normal Resp: Effort & Inspection: normal respiratory effort Auscultation: clear to auscultation bilaterally Cardio: Rate: regular rate Rhythm: regular rhythm GI: Inspection: non-distended GI Palp: Yes Soft to palpation, No Tenderness to palpation present (GI) and No Guarding due to palpation present (GI) Auscultation: normal bowel sounds : General: Yes bladder normal to palpation External Female Exam: normal external appearance Speculum Exam - Vagina: normal vaginal discharge and No vaginal bleeding Speculum Exam - Cervix: nontender Bimanual exam- vagina & uterus: bladder normal to palpation and No Cervical tenderness present OB/external & speculum: No vaginal bleeding Skin: General skin exam: no rashes or lesions noted Extrem: General: normal to inspection and no edema Psych: Mental Status: mental status grossly normal Affect: normal affect
[2021-05-02] MEDS: DOCUSATE SODIUM 100 MG CAPSULE PO (08:44)
[2021-05-02] MEDS: MULTIVIT/MIN/PREN/FOL AC/IRON TABLET 1 TAB PO (08:44)
[2021-05-02] MEDS: POLYSACCHARIDE IRON COMPLEX 150 MG CAPSULE PO (08:44)
[2021-05-02] MEDS: IBUPROFEN 600 MG TABLET PO (08:44)
[2021-05-02] MEDS: HYDROcodone/acetaminophen (*CRX) 5-325 MG TABLET 1 TAB PO (08:44)
[2021-05-02 08:45] VITALS: BP 118/77; PULSE 77; RESP 18; TEMP 36.6; O2SAT 100
--- NOTE | 2021-05-02 08:45 | PC.NURSE ---
Patient viewed the discharge video Mother & Baby Care, The First Two Weeks . Patient was given the opportunity and encouraged to ask questions. Patient verbalized understanding of information shared and has been given the mother/baby guide for home reference.
--- NOTE | 2021-05-02 10:37 | PC.NURSE ---
Addendum entered by Carlee George RN 05/02/21 15:07: This noted was entered and performed by Jude George RN, CLC not Maday Jones RN. Computer login error. Original Note: Consulted with patient, reviewed feeding cues, frequencies, duration of feedings, feeding elimination flow sheet, and signs of adequate intake. Demonstrated stimulation techniques to wake infant for feeding. Assisted with to breast. Reviewed positioning/alignment, holding breast and asymmetrical latch on. was able to latch correctly. nursed eagerly, with steady draws and frequent swallowing noted. Initially infant noted to have a shallow latch that was easily corrected to achieve a more comfortable deeper latch. Reviewed signs of a correct latch, effective nursing and suck swallow ratio. Infant was able to maintain latch without discomfort to mother while mother holding position. Nipple care reviewed. Instructed mother to call out for RN assistance if she is unable to latch for feeding or she has discomfort with nursing. Instructed feeding should be initiated three hours from start of last feeding or if feeding cues are noted before. Mother prefers to continue supplementing after every feeding until her milk comes in. Pt states she has a motif pump for home use and is comfortable using it since she breastfed and pumped with previous child for 2 1/2 months. Pt verbalized she is comfortable latching independently and continuing at home. Infant is tongue tied however mother denies pinching with feedings. Nipples are tender and pt is using lanolin prn. Reviewed mother/baby care booklet regarding support after dc. Mother voiced understanding of information shared.
[2021-05-03 13:04] VITALS: BP 131/66; PULSE 70; RESP 20; TEMP 36.9; O2SAT 100
== END 2021-05-02 12:43 | disposition home or self-care (01) | DRG 788 ==
LOC: ANHLDR 05:47 → ANHOB2 11:55
PROVIDERS: Admitting Provider Obstetrics & Gynecology; Visit Provider Obstetrics & Gynecology
PROC: 10D00Z1 Extraction of Products of Conception, Low, Open Approach (ICD-10-PCS; CPT 59514; principal; 2021-04-30 07:30)
DX: O34.211 Maternal care for low transverse scar from previous cesarean delivery (principal); Z37.0 Single live birth; Z3A.39 39 weeks gestation of pregnancy; O99.334 Smoking (tobacco) complicating childbirth; F17.210 Nicotine dependence, cigarettes, uncomplicated; O99.214 Obesity complicating childbirth; E66.9 Obesity, unspecified
CPT/HCPCS: 36415; 85025; 85027; 86592; 86850; 86900; 86901; A9270; J0131; J0690; J1200; J1885; J2274; J2405; J7120

== ENCOUNTER 2021-12-15 10:00 | Emergency (ER) | payer OTHER, SELFPAY ==
--- NOTE | 2021-12-15 10:02 | ED.EAR ---
HPI - Ear Problem General Chief complaint: Ear Stated complaint: ear pain/drainage Source: patient, RN notes reviewed and old records reviewed Mode of arrival: ambulatory Limitations: no limitations History of Present Illness HPI Narrative: 31-year-old female presents to the [facility] With complaints of right ear pain and drainage since early this morning. Has had a sore throat. Denies fevers or chest pain. No sinus symptoms. Patient reports that she always has white areas on her tonsils, the one on the right has been getting bigger. Patient is able to swallow without difficulty. Has taken Tylenol Complaint: ear pain and ear discharge Related Data Allergies Allergy/AdvReac Type Severity Reaction Status Date / Time No Known Allergies Allergy Verified 10/11/19 13:26 Review of Systems Review of Systems: All systems reviewed & are unremarkable except as noted in HPI and below Constitutional: Constitutional: Reports no additional constitutional complaints, Denies chills and Denies fever(s) Eyes: Eyes: Reports no additional eye complaints ENT: Reports as per HPI, Denies change in voice, Denies dental pain, Denies vertigo, Denies dizziness, Reports sore throat and Denies throat swelling Comments: Ear pain, right with drainage Cardiovascular: Cardiovascular: Reports no additional cardiovascular complaints, Denies chest pain and Denies dyspnea Respiratory: Respiratory: Reports no additional respiratory complaints, Denies cough and Denies dyspnea Gastrointestinal: Gastrointestinal: Reports no additional gastrointestinal complaints, Denies abdominal pain, Denies nausea and Denies vomiting Musculoskeletal: Musculoskeletal: Reports no additional musculoskeletal complaints Integumentary/Breasts: Skin/Breast: Reports system reviewed and no additional complaints, except as docu Neurologic: Reports system reviewed and no additional complaints, except as documented, Denies vertigo and Denies dizziness Psychiatric: Psychiatric: Reports no additional psychiatric complaints Allergic/Immunologic: Allergic/Immunologic: Reports no additional allergic/immunologic complaints and Denies throat swelling PMF Past Medical History Medical History (Updated 12/15/21 @ 10:25 by Karen Espinosa APRN) Hypertension Family History Family History Mother Diabetes mellitus Father Hypertension Mother Hypertension Other No pertinent family history Social History Social History Smoking packs per day: 0.5 Smoking cigarettes per day: 10.0 Years smoked: 12 Smoking pack-years: 6.00 Smoking status: Current every day smoker Tobacco type: cigarettes Substance use: never Gender identity (if verbalized by the patient): Female Spiritual care concerns: No Comments At the time of my signature, I reviewed and agree with the nursing past medical, surgical, social, and family history. There is no relevant family history pertinent to the patient complaint. Exam Const: General: healthy appearing, no acute distress and alert Nutritional Appearance: well nourished Orientation/consciousness: patient oriented x3 Limitations: no limitations HENMT: Head: normal to inspection Ears: external ears normal, TM's normal bilaterally and EAC's normal General nose exam: Normal external nose present and Normal nasal mucous membranes and turbinates present Face and sinus: normal facial exam Mouth: Yes Normal oral and palatal mucosa present Throat: posterior oropharynx normal, uvula midline, abnormal tonsil bilateral erythema, hypertrophy 3+, crypts and other (White areas to the top of bilateral tonsils) and no uvular edema Eyes: Conjunctivae: conjunctivae normal Pupils: Equal, round and reactive pupils present Neck: Neck: normal visual inspection, no lymphadenopathy and no meningeal signs Chest: Chest palpation & inspection: nor
[2021-12-15 10:07] VITALS: BP 142/90; PULSE 95; RESP 16; TEMP 36.8; O2SAT 99
== END 2021-12-15 10:28 | disposition home or self-care (01) ==
PROVIDERS: Emergency Provider Nurse Practitioner
DX: J35.1 Hypertrophy of tonsils (principal); H66.011 Acute suppurative otitis media with spontaneous rupture of ear drum, right ear; F17.210 Nicotine dependence, cigarettes, uncomplicated; I10 Essential (primary) hypertension
CPT/HCPCS: 87081; 87880; 99213; G0463